=== PATIENT | male | born 1960 | race Caucasian/White ===

== ENCOUNTER 2023-06-02 13:14 | Emergency (ER) | payer MEDICAID ==
[~2023-06-02] VITALS: Ht 177.8 cm; Wt 87.5 kg
[2023-06-02 14:11] VITALS: BP 141/86; TEMP 98.6
[2023-06-02] MEDS ORDERED: CLIN300C12 PO (15:15)
[2023-06-02] MEDS ORDERED: AMOX-430 PO (15:15)
[2023-06-02] MEDS ORDERED: CLINDAMYCIN HCL 150 MG CAPSULE PO ONE (15:30)
[2023-06-02] MEDS ORDERED: AMOX/CLAVULANATE 875 MG TABLET PO ONE (15:30)
[2023-06-02] MEDS ORDERED: CLINDAMYCIN HCL 150 MG CAPSULE ONE (15:41)
[2023-06-02] MEDS ORDERED: AMOX/CLAVULANATE 875 MG TABLET ONE (15:42)
[2023-06-02 15:57] VITALS: O2SAT 100
== END 2023-06-02 15:59 | disposition home or self-care (01) ==
LOC: ER 13:20
DX: L03.213 Periorbital cellulitis (principal); Z60.2 Problems related to living alone

== ENCOUNTER 2023-07-03 20:27 | Emergency (ER) | payer MEDICAID ==
[~2023-07-03] VITALS: Ht 177.8 cm; Wt 88.5 kg
[~2023-07-03 20:27] MED LIST: AMOX-430 PO; CLIN300C12 PO
[2023-07-03 21:51] LABS: BASOPHILS % (AUTO) 0.6 % (0.0-2.0); EOSINOPHILS # (AUTO) 0.2 K/uL (0.0-0.7); EOSINOPHILS % (AUTO) 2.8 % (0.0-6.0); HEMATOCRIT 37 % (39-51); LYMPHOCYTES # (AUTO) 2.2 K/uL (0.8-4.8); LYMPHOCYTES % (AUTO) 29.9 % (20.0-44.0); MEAN CORPUSCULAR HEMOGLOBIN 19 PG (26.0-33.0); MEAN CORPUSCULAR HGB CONC 32 g/dl (31.0-36.0); MEAN CORPUSCULAR VOLUME 59 fL (80-96); MONOCYTES # (AUTO) 0.5 K/uL (0.1-1.30); MONOCYTES % (AUTO) 7.2 % (2.0-12.0); NEUTROPHILS # (AUTO) 4.4 K/uL (1.8-8.9); NEUTROPHILS % (AUTO) 59.5 % (43.0-81.0); PLATELET COUNT (AUTO) 300 K/uL (150-450); RED BLOOD CELL COUNT(AUTO) 6.38 MIL/uL (4.5-6.0); RED CELL DISTRIBUTION WIDTH 17.6 % (11.5-15.0); WHITE BLOOD COUNT (AUTO) 7.5 K/uL (4.3-11.0)
[2023-07-03] MEDS ORDERED: KETOROLAC TROMETHAMINE INJ 30 MG/ML VIAL ONE (22:01)
[2023-07-03] MEDS ORDERED: diphenhydrAMINE HCL 50 MG CAPSULE ONE (22:02)
[2023-07-03 22:03] LABS: CALCIUM, SERUM 8.6 mg/dL (8.5-10.1)
[2023-07-03] MEDS: KETOROLAC TROMETHAMINE INJ 30 MG/ML VIAL IM ONE (22:09)
[2023-07-03] MEDS: diphenhydrAMINE HCL 50 MG CAPSULE PO ONE (22:09)
[2023-07-03] MEDS ORDERED: DIPH50CA4 PO (22:47)
[2023-07-03] MEDS ORDERED: IBUP-1953 PO (22:47)
[2023-07-03] MEDS ORDERED: NAPR-1164 PO (22:59)
[2023-07-03 23:11] LABS: ANISOCYTOSIS 1+; EOSINOPHILS % (MANUAL) 1 % (0-4); LYMPHOCYTES % (MANUAL) 27 % (16-48); MONOCYTES % (MANUAL) 6 % (0-11.0); MYELOCYTES % 1 % (0-0); NEUTROPHILS % (MANUAL) 65 (42-76); PLATELET ESTIMATE ADEQUATE
[2023-07-03 23:12] LABS: OVALOCYTES 1+
[2023-07-04 00:32] VITALS: BP 121/68; TEMP 98.1; O2SAT 97
== END 2023-07-03 23:00 | disposition home or self-care (01) ==
LOC: ER 20:28
DX: S41.132A Puncture wound without foreign body of left upper arm, initial encounter (principal); Z79.899 Other long term (current) drug therapy; Z60.2 Problems related to living alone; W57.XXXA Bitten or stung by nonvenomous insect and other nonvenomous arthropods, initial encounter; Y93.89 Activity, other specified; Y92.098 Other place in other non-institutional residence as the place of occurrence of the external cause; Y99.8 Other external cause status
CPT/HCPCS: 99283; 96372; 85025; 80048; 36415; 85007; Q0163; J1885

== ENCOUNTER 2024-07-23 15:35 | Emergency (ER) | payer MEDICAID, OTHER ==
[~2024-07-23] VITALS: Ht 177.8 cm; Wt 90.7 kg
[~2024-07-23 15:35] MED LIST changes: +DIPH50CA4 PO; +NAPR-1164 PO
[2024-07-23] MEDS: HYDROCODONE/APAP 5/325MG TABLET PO ONE (16:05)
[2024-07-23] MEDS: ACETAMINOPHEN ES 500 MG TABLET PO ONE (16:05)
[2024-07-23] MEDS ORDERED: HYDROCODONE/APAP 5/325MG TABLET ONE (16:07)
[2024-07-23] MEDS ORDERED: ACETAMINOPHEN ES 500 MG TABLET ONE (16:08)
[2024-07-23] MEDS ORDERED: SUMATRIPTAN SUCCINATE 6 MG/0.5 ML VIAL SQ ONE (17:06)
[2024-07-23] MEDS ORDERED: KETOROLAC TROMETHAMINE 15 MG/ML VIAL ONE (17:06)
[2024-07-23] MEDS: KETOROLAC TROMETHAMINE 15 MG/ML VIAL IM ONE (17:24)
[2024-07-23] MEDS: SUMATRIPTAN SUCCINATE 6 MG/0.5 ML VIAL SQ ONE (17:24)
[2024-07-23] MEDS ORDERED: KETO10TA2 PO (18:20)
[2024-07-23] MEDS ORDERED: SUMA100T PO (18:20)
[2024-07-23 18:35] VITALS: BP 150/88; TEMP 98; O2SAT 99
== END 2024-07-23 18:36 | disposition home or self-care (01) ==
LOC: ER 15:46
DX: S00.83XA Contusion of other part of head, initial encounter (principal); H53.8 Other visual disturbances; Z60.2 Problems related to living alone; W01.0XXA Fall on same level from slipping, tripping and stumbling without subsequent striking against object, initial encounter; Y93.89 Activity, other specified; Y92.091 Bathroom in other non-institutional residence as the place of occurrence of the external cause; Y99.8 Other external cause status
CPT/HCPCS: 99285; 72125; 96372 ×2; 70450; 70486; J3030; J1885